=== PATIENT | male | born 1940 | race Caucasian/White ===

== ENCOUNTER → 2019-05-07 | Outpatient (CLI) | payer MEDICARE ==
--- NOTE | 2019-05-10 08:46 | SLEEP ---
[address] [address] SLEEP STUDY REPORT Name: LISBETBESSY Gabbi Room: [facility]#: [id number] Admission: 05/07/19 Attend Phys: Lucio Albarran DO Discharge: Date of : 42 Report #: [id number] THIS REPORT FOR: //name// CC: Lucio Albarran FAM unknown This study has been reviewed in its entirety by a board certified sleep specialist DATE OF SERVICE: 05/07/2019 SLEEP STUDY REFERRING PHYSICIAN: Lucio Albarran D.O. The patient is 78-year-old who was previously diagnosed with severe obstructive sleep apnea by home sleep study. The patient had 321 obstructive apneas and 43 hypopneas and no central apneas. The patient then had a CPAP-BiPAP titration study and was unable to tolerate CPAP, but at the BiPAP pressure of 18/12, the patient's AHI was 6 per hour; however, the clinician was concerned about long central apneas. As a result, the patient was referred for BiPAP/ASV titration study. During the night of the study, the patient spent 379 minutes in bed and slept for 113 minutes only with a sleep efficiency of 29%. Sleep latency was 6 minutes with a REM latency of 205 minutes. Sleep architecture showed increased stage 1 sleep, normal stage 2 sleep, absent slow wave and reduced REM sleep. EKG monitoring revealed an average heart rate of 58 beats per minute. No sustained arrhythmias observed. PLMs were seen at an index of 2.7 per hour and 1 per hour caused EEG arousals. The patient was started on BiPAP at a pressure of 10/5 and the pressure was increased all the way up to 25/15. However, at that pressure, the patient's AHI was still 23 per hour. As a result, the patient was then switched to ASV. Different settings were used and the maximum pressure was continued to increase. The patient was titrated up to a minimum EPAP of 15 cm water with a maximum EPAP of 17 cm of water and pressure support of 11 and a maximum pressure of 30. The patient's AHI was still 18 per hour. However, based on the review of the ASV titration, best results were obtained at an ASV setting of maximum EPAP of 15, minimum EPAP of 14, pressure support of 11, and a maximum pressure of 25. At that pressure, the patient had 28 minutes of sleep and AHI was 12.6 per hour. Oxygen saturation did remain above 90%. This was a very difficult study due to very poor sleep efficiency of only 29% from fragmented sleep. In my opinion, a previous BiPAP setting of 18/12 should be considered therapeutic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 IMPRESSION: 1. Severe Obstructive sleep apnea diagnosed by home sleep study. 2. No clinically significant PLMs. 3. Severely reduced sleep efficiency of 29% from fragmented sleep making titration study very difficult. RECOMMENDATIONS: 1. As discussed above, an optimum BiPAP pressure was not achieved. Optimum ASV settings were not achieved as well. 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 With that said, the best therapeutic pressure seems to be obtained previously on a BiPAP titration at a pressure of 18/12 with a back up rate of 10. At that pressure the patient's AHI was 6/hr and it should be used on a nightly basis. 2. I would recommend the patient should have a download data in 4-6 weeks at that BiPAP pressure as treatment-emergent central apneas tend to improve over a period of time. However, if patient's AHI remains high, then the patient can be placed on ASV mode with a minimum EPAP of 14 cm water with a maximum EPAP of 15 cm water, pressure support of 11, and a maximum pressure of 25. 2. Weight loss is advised. 3. Avoid LOAD MIXER depressants. 4. Caution regarding driving until symptoms of sleep apnea resolve with the above recommendations. <ELECTRONICALLY SIGNED> By: Ascencion Tobias MD 05/10/19 [id number] 1927Aerica Tobais MD /[email or web address]
== END ==
LOC: M.SLEEPLAB 20:48
DX: G47.33 Obstructive sleep apnea (adult) (pediatric) (principal)